=== PATIENT | male | born 1975 | race Caucasian/White ===

== ENCOUNTER 2022-12-28 22:06 | Emergency (ER) | payer OTHER ==
[~2022-12-28] VITALS: Ht 162.6 cm; Wt 95.0 kg
[2022-12-28 22:24] VITALS: BP 157/96
[2022-12-28 22:30] VITALS: BP 144/92
[2022-12-28 22:46] LABS: BASO% 0.2 % (0-3); EOS% 4.5 % (0-8); HEMATOCRIT 43.1 % (39.0-50.0); HEMOGLOBIN 14.6 g/dl (14.0-18.0); IMMATURE GRANULOCYTES 0.3 % (0.0-5.0); LYMPH% 27.2 % (15-41); MEAN CELL VOLUME 91.7 fL CALC (80.0-100.0); MEAN CORPUSCULAR HGB 31.1 pG CALC (26.0-32.0); MEAN CORPUSCULAR HGB CONC 33.9 g/dL CAL (32.0-36.0); NEUT# 5.5 thou/uL (1.82-7.42); NEUT% 59.8 % (42-76); RED BLOOD COUNT 4.7 mill/uL (4.70-6.10); RED CELL DISTRI WIDTH 12.1 % (11.5-15.5)
[2022-12-28 22:51] LABS: GFR FOR AFR.AMER. > 60 ML/MIN (>=60 (CALC)); GFR OTHER RACES 51 ML/MIN (>=60 (CALC))
[2022-12-28 23:00] VITALS: BP 149/96
[2022-12-28 23:01] LABS: ALBUMIN 4.5 g/dL (3.2-5.0); ALKALINE PHOSPHATASE 62 u/l (38-126); ANION GAP 15 (6-22 (CALC)); BILIRUBIN, TOTAL 0.4 mg/dL (0.2-1.3); BUN 11 mg/dL (9-20); BUN/CREATININE RATIO 8 (12-20 (CALC)); CARBON DIOXIDE 20 mmol/l (22-30); CHLORIDE 107 mmol/l (95-108); CREATININE 1.3 mg/dL (0.7-1.3); ETHYL ALCOHOL 0 mg/dl (0-30); GFR FOR AFR.AMER. > 60 ML/MIN (>=60 (CALC)); GFR OTHER RACES 60 ML/MIN (>=60 (CALC)); POTASSIUM 3.7 mmol/l (3.5-5.1); SGOT/AST 75 u/l (17-59); SODIUM 138 mmol/l (137-146); TOTAL PROTEIN 8.3 g/dL (6.3-8.2)
[2022-12-28 23:34] VITALS: BP 152/89
[2022-12-29] VITALS: BP 137/91
[2022-12-29 00:30] VITALS: BP 144/91
[2022-12-29] MEDS ORDERED: NAPROXEN500 MG PO (01:18)
[2022-12-29] MEDS ORDERED: CEPHALEXIN500 MG PO (01:18)
[2022-12-29 02:18] VITALS: BP 122/81
[2022-12-29 03:07] VITALS: BP 122/81
== END 2022-12-29 03:20 | DRG 605 ==
LOC: ED 22:06
PROVIDERS: Emergency Medicine
DX: S80.212A Abrasion, left knee, initial encounter (principal); V29.408A Other motorcycle driver injured in collision with unspecified motor vehicles in traffic accident, initial encounter; M79.10 Myalgia, unspecified site; S60.812A Abrasion of left wrist, initial encounter; S50.312A Abrasion of left elbow, initial encounter; S90.811A Abrasion, right foot, initial encounter
CPT/HCPCS: Q9967